=== PATIENT | male | born 1955 | race Caucasian/White ===

== ENCOUNTER 2018-01-15 09:34 | Outpatient (CLI) ==
--- NOTE | 2018-01-15 10:05 | DI ---
EXAM: Two views of the chest. History: Cough. Findings: Heart size is within normal limits. No focal consolidation. No appreciable pleural fluid and no pneumothorax. No acute osseous abnormalities. Probable small calcified granuloma within the right midlung. Impression: No acute cardiopulmonary process.
== END 2018-01-15 09:35 | disposition home or self-care (01) ==
LOC: RAD 09:34
PROVIDERS: ATTEND Family Medicine
DX: R05 Cough (principal)

== ENCOUNTER 2018-01-22 10:44 | Outpatient (CLI) | END 2018-01-22 10:45 | disposition home or self-care (01) | LOC: FCC-LAB 10:44 | PROVIDERS: ATTEND Family Medicine | DX: I10 Essential (primary) hypertension (principal); E87.5 Hyperkalemia | CPT/HCPCS: 36415; 80053; 85025 ==